=== PATIENT | male | born 1985 | race Caucasian/White ===

== ENCOUNTER 2020-08-01 20:58 | Emergency (ER) | payer OTHER, SELFPAY ==
[2020-08-01 20:59] VITALS: BP 126/84; PULSE 89; RESP 16; TEMP 37.7; O2SAT 100; BMI 27.8
--- NOTE | 2020-08-01 22:03 | ED.DCSUM_ITS ---
History of Present Illness Chief Complaint: Cellulitis Informant: Patient Narrative: Patient is a 34-year-old previously healthy male who presents to the emergency department for right hand swelling and warmth. He was diagnosed with cellulitis by his PCP earlier today. He has taken 1 dose of Keflex so far. They jl a line around the area of erythema and was told to come to the emerge department if it spread past this. This started to spread of the wrist slightly so he decided to come to the emergency department. He denies any fevers at home. He has been taking ibuprofen. He states that the pain was pretty significant yesterday but today it feels much better. There is still swelling. He denies any nausea/vomiting. Denies ever had his happen before in the past. On he had a wart to the palmar aspect of the hand which he picked off. This was thought to be the source of the infection. Denies any history of abscesses or MRSA before in the past. Past Medical History - Allergies and Home Meds Allergies/Adverse Reactions: Allergies No Known Allergies Allergy (Verified 08/01/20 21:01) Primary Care Physician: Shahbaz Parada DO [Primary Care Provider] - 2 Days Prior records reviewed: Yes Past Medical History: None Smoking Status: Current every day smoker Review of Systems All systems negative except as indicated General: Denies: Chills, Fever, Sweats Eyes: Denies: Visual changes - bilaterally, Diplopia ENT: Denies: Rhinorrhea, Sore throat Cardiovascular: Denies: Chest pain, Palpitations Respiratory: Denies: Dyspnea, Cough, Dyspnea on exertion Gastrointestinal: Denies: Abdominal pain, Nausea, Vomiting, Diarrhea Musculoskeletal: Reports: Swelling, Extremity Pain. Denies: Back pain Skin: Reports: Rash. Denies: Wounds Neurological: Denies: Headache, Weakness, Numbness Physical Exam Vital Signs/Narrative: Vital Signs Temp Pulse Resp BP Pulse Ox 08/01/20 20:59 99.8 F H 89 16 126/84 H 100 Inital Vital Signs reviewed: Yes General: Well nourished, Well developed, No Acute Distress Head: Normocephalic, Atraumatic Eyes: Perrl, EOMI ENT: Moist mucous membranes, No rhinorrhea Neck: Supple, Nontender Cardiovascular: Regular rate, Regular rhythm, No murmurs Respiratory: No distress, CTA bilaterally, Chest nontender Abdomen: Soft, Nondistended Back: Nontender, Normal Inspection Extremities: Nontender, No edema, Edema - Right hand swelling. Previous wart removal site at the right ring finger. The finger is swollen but has good range of motion. No pain with passive range of motion. No wrist pain. Neurovascular intact. Skin: Normal color, No rash Neurological: Alert, Oriented x3, Cranial nerves II-XII grossly intact, Normal Strength, Normal Sensation Psychological: Normal affect, Normal Mood Diagnostic/Tx/Re-eval - Medical Decision Making Patient presents emerge department for cellulitis of his hand. He is currently undergoing treatment although he only took 1 dose of antibiotics. I do not feel that he failed outpatient therapy as he did not get an appropriate dose to treat this yet. He does have a slightly elevated temperature but is currently afebrile. Will add Bactrim to cover for MRSA. He is given first dose here in the emergency department. Warning signs and symptoms which to return to the ED are reviewed. Otherwise he needs to follow-up with his PCP. Patient understands and is agreeable this plan. Will discharge home in stable condition. ED Disposition - Plan for ED Patient: Disposition: Home or Assisted Living Diagnosis: Cellulitis of hand Instructions: ED Cellulitis Prescriptions: Smz/Tmp Ds [Bactrim Ds] 2 tab PO BID 7 Days #28 tab Transmission Status: Received by [facility] Smz/Tmp Ds [Bactrim Ds] 2 tab PO BID 7 Days #28 tab Prescription Printed Referrals: Shahbaz Parada DO [Primary Care Provider] - 2 Days
[2020-08-01] MEDS: Smz/Tmp Ds Tablet 2 TABLET PO (22:30)
== END 2020-08-01 22:47 | disposition home or self-care (01) ==
LOC: ED 22:13
PROVIDERS: Emergency Provider Emergency Medicine; PCP Family Medicine
DX: L03.113 Cellulitis of right upper limb (principal); F17.200 Nicotine dependence, unspecified, uncomplicated
CPT/HCPCS: 99283

== ENCOUNTER → 2025-04-26 | Outpatient (CLI) | payer OTHER, SELFPAY ==
--- OUTSIDE RECORDS SUMMARY | 2025-04-26 07:27 | XMS RPT_ITS | CCD ---
Author Organization [employer] [facility] [employer] Results Test Name Value Interpretation Reference Range Facil ity Emergency Department Summary on 08-02-[address] [facility] Medical Records Department [address] [place] [address] Emergency Department Summary 08/01/20 MR#: [id number] Acct: [id number] Name: JOSE JORDAN Rep #: [id number] : 1985 34 From: Uvaldo Salazar DO PCP: Dr. Shahbaz Parada DO Status:DEP ER History of Present Illness Chief Complaint: Cellulitis Informant: Patient Narrative: Patient is a 34-year-old previously healthy male who presents to the emergency department for right hand swelling and warmth. He was diagnosed with cellulitis by his PCP earlier today. He has taken 1 dose of Keflex so far. They jl a line around the area of erythema and was told to come to the emerge department if it spread past this. This started to spread of the wrist slightly so he decided to come to the emergency department. He denies any fevers at home. He has been taking ibuprofen. He states that the pain was pretty significant yesterday but today it feels much better. There is still swelling. He denies any nausea/vomiting. Denies ever had his happen before in the past. On he had a wart to the palmar aspect of the hand which he picked off. This was thought to be the source of the infection. Denies any history of abscesses or MRSA before in the past. Past Medical History - Allergies and Home Meds Allergies/Adverse Reactions: Allergies No Known Allergies Allergy (Verified 08/01/20 21:01) Primary Care Physician: Shahbaz Parada DO [Primary Care Provider] - 2 Days Prior records reviewed: Yes Past Medical History: None Smoking Status: Current every day smoker Review of Systems All systems negative except as indicated General: Denies: Chills, Fever, Sweats Eyes: Denies: Visual changes - bilaterally, Diplopia ENT: Denies: Rhinorrhea, Sore throat Cardiovascular: Denies: Chest pain, Palpitations Respiratory: Denies: Dyspnea, Cough, Dyspnea on exertion Gastrointestinal: Denies: Abdominal pain, Nausea, Vomiting, Diarrhea Musculoskeletal: Reports: Swelling, Extremity Pain. Denies: Back pain Skin: Reports: Rash. Denies: Wounds Neurological: Denies: Headache, Weakness, Numbness Physical Exam Vital Signs/Narrative: Vital Signs Temp Pulse Resp BP Pulse Ox 08/01/20 20:59 99.8 F H 89 16 126/84 H 100 Inital Vital Signs reviewed: Yes General: Well nourished, Well developed, No Acute Distress Head: Normocephalic, Atraumatic Eyes: Perrl, EOMI ENT: Moist mucous membranes, No rhinorrhea Neck: Supple, Nontender Cardiovascular: Regular rate, Regular rhythm, No murmurs Respiratory: No distress, CTA bilaterally, Chest nontender Abdomen: Soft, Nondistended Back: Nontender, Normal Inspection Extremities: Nontender, No edema, Edema - Right hand swelling. Previous wart removal site at the right ring finger. The finger is swollen but has good range of motion. No pain with passive range of motion. No wrist pain. Neurovascular intact. Skin: Normal color, No rash Neurological: Alert, Oriented x3, Cranial nerves II-XII grossly intact, Normal Strength, Normal Sensation Psychological: Normal affect, Normal Mood Diagnostic/Tx/Re-eval - Medical Decision Making Patient presents emerge department for cellulitis of his hand. He is currently undergoing treatment although he only took 1 dose of antibiotics. I do not feel that he failed outpatient therapy as he did not get an appropriate dose to treat this yet. He does have a slightly elevated temperature but is currently afebrile. Will add Bactrim to cover for MRSA. He is given first dose here in the emergency department. Warning signs and symptoms which to return to the ED are reviewed. Otherwise he needs to follow-up with his PCP. Patient understands and is agreeable this plan. Will discharge home in stable condition. ED Disposition - Plan for ED Patient: Disposition: Home or Assisted Living Diagnosis: Cellulitis of hand Instructions: ED Cellulitis Prescriptions: Smz/Tmp Ds [Bactrim Ds] 2 tab PO BID 7 Days #28 tab Transmission Status: Received by [facility] Smz/Tmp Ds [Bactrim Ds] 2 tab PO BID 7 Days #28 tab Prescription Printed Referrals: Shahbaz Parada DO [Primary Care Provider] - 2 Days What to do if you have Problems For any increased pain, shortness of breath, bleeding, nausea or vomiting, chest pain, or any unexpected problems, contact your Primary Care Provider. Call [facility] ([phone]) or report to the closest Emergency Room. Call 911 if necessary. 08/01/20 5179 Date Uvaldo Arguello Signature (If Indicated): Date _ CC: Dr. Shahbaz Parada DO [facility] 08-02-2019 [facility] Office Visit (GENSWS ) JOSE JORDAN ([id number]) 1985 M Date Time Provider Department 08/02/19 8:20 AM KELSIE SPRAGUE During your visit today, we recorded the following information about you: Temperature Pulse Blood pressure Weight 98.4 degrees 95/minute 114/64 78 kg Kelsie Sprague MD 08/02/2019 3:54 PM Signed Jose is s/p excision of infected sebaceous cyst 07/21/19 of back. Denies drainage Denies fevers. Examination: wound is granulating in well, some fibrinous exudate noted, no further residual infection and surrounding skin without inflammation Impression: s/p excision of infected sebaceous cyst Plan: Dressing change done today. Wound to heal by secondary intention. No further wound packing needed. Apply gauze dressing into wound (over the wound). To be done daily, may be done in the shower, can irrigate with hydrogen peroxide. Scrub area gently with soft washcloth to remove fibrinous exudate buildup Follow up with me as per needed, I suspect wound should heal well at this point, given the above. Patient encouraged to return to clinic if worsening signs/symptoms. Patient to return to his primary physician for medical care Referring Provider: SELF [[id number]] Allergies As of Date: 08/02/2019 (No Known Allergies) Date Reviewed: 08/02/2019 Reviewed by: Bing Rentreia RN - Fully Assessed Reason for Visit: Post Op [174] Primary Visit Diagnosis:Follow-up exam [Z09] Prescriptions as of 08/02/2019 Sig: ACIDOPHILUS ORAL Take by mouth. DOXYCYCLINE MONOHYDRATE 100 M* Take 1 capsule by mouth twice* Patient not taking: Reported on 07/16/2019 Problem List As Of Date: 08/02/2019 (None) Encounter Status:Closed by MD KELSIE SPRAGUE on 08/02/19 [facility] PROGRESSon 08-02-2019 PROGRESS HNO ID: [id number] Author: Kelsie Sprague Service: ? Author Type: Physician Type: Progress Notes Filed: 08/02/2019 3:54 PM Note Text: Jose is s/p excision of infected sebaceous cyst 07/21/19 of back. Denies drainage Denies fevers. Examination: wound is granulating in well, some fibrinous exudate noted, no further residual infection and surrounding skin without inflammation Impression: s/p excision of infected sebaceous cyst Plan: Dressing change done today. Wound to heal by secondary intention. No further wound packing needed. Apply gauze dressing into wound (over the wound). To be done daily, may be done in the shower, can irrigate with hydrogen peroxide. Scrub area gently with soft washcloth to remove fibrinous exudate buildup Follow up with me as per needed, I suspect wound should heal well at this point, given the above. Patient encouraged to return to clinic if worsening signs/symptoms. Patient to return to his primary physician for medical care [facility] CNOVon 07-26-2019 CNOV Office Visit (GENSWS ) JOSE JORDAN ([id number]) 1985 M Date Time Provider Department 07/26/19 10:40 AM KELSIE SPRAGUE During your visit today, we recorded the following information about you: Temperature Pulse Weight 97.8 degrees 80/minute 78.5 kg Kelsie Sprague MD 07/27/2019 3:24 PM Signed Jose is s/p excision of infected sebaceous cyst 07/21/19 of back. Minimal seepage at the site. Denies fevers. Examination: wound is granulating in well, no further residual infection and surrounding skin without inflammation Impression: s/p excision of infected sebaceous cyst Plan: Dressing change done today. Wound to heal by secondary intention. No further wound packing needed. Apply gauze dressing into wound (over the wound). To be done daily, may be done in the shower, can irrigate with hydrogen peroxide. Follow up in one week. Referring Provider: SELF [[id number]] Allergies As of Date: 07/26/2019 (No Known Allergies) Date Reviewed: 07/26/2019 Reviewed by: Bing Renteria RN - Fully Assessed Reason for Visit: Post Op [174] Primary Visit Diagnosis:Infected sebaceous cyst [L72.3, L08.9] Prescriptions as of 07/26/2019 Sig: ACIDOPHILUS ORAL Take by mouth. DOXYCYCLINE MONOHYDRATE 100 M* Take 1 capsule by mouth twice* Patient not taking: Reported on 07/16/2019 Problem List As Of Date: 07/26/2019 (None) Encounter Status:Closed by MD KELSIE SPRAGUE on 07/27/19 [facility] PROGRESSon 07-26-2019 PROGRESS HNO ID: [id number] Author: Kelsie Sprague Service: ? Author Type: Physician Type: Progress Notes Filed: 07/27/2019 3:24 PM Note Text: Jose is s/p excision of infected sebaceous cyst 07/21/19 of back. Minimal seepage at the site. Denies fevers. Examination: wound is granulating in well, no further residual infection and surrounding skin without inflammation Impression: s/p excision of infected sebaceous cyst Plan: Dressing change done today. Wound to heal by secondary intention. No further wound packing needed. Apply gauze dressing into wound (over the wound). To be done daily, may be done in the shower, can irrigate with hydrogen peroxide. Follow up in one week. [facility] PROCEDUREon 07-24-2019 PROCEDURE HNO ID: [id number] Author: Kelsie Sprague Service: ? Author Type: Physician Type: Procedures Filed: 07/24/2019 3:21 PM Note Text: Description of procedure: After informed consent was obtained, patient was brought to the procedure room. Appropriate time out protocol was followed. Patient was placed in the prone position. The site of the lesion was then cleansed with a sterile surgical skin preparation. Appropriate sterile surgical drapes were placed. The skin and subcutaneous tissues at the site were then infiltrated with local anesthetic. A skin incision was made at the site in a cruciate fashion over the infected sebaceous cyst with a 15 blade scalpel. The incision was carried down to the subcutaneous tissues. Dissection was done to separate the skin lesion from the surrounding subcutaneous tissues. The lesion was excised sharply down to the subcutaneous tissues. The lesion was 3 cm in size. It was consistent with an infected sebaceous cyst. The patient did not want it sent to pathology for analysis. Hemostasis was controlled by pressure. The wound was densely packed with gauze. Sterile dressing was applied. Patient tolerated procedure well. [facility] PROGRESSon 07-24-2019 PROGRESS HNO ID: [id number] Author: Kelsie Sprague Service: ? Author Type: Physician Type: Progress Notes Filed: 07/24/2019 5:55 PM Note Text: Jose is s/p excision of infected sebaceous cyst 07/21/19 Minimal seepage at the site. Denies fevers. Examination: wound is granulating in well, no further residual infection and surrounding skin without inflammation Impression: s/p excision of infected sebaceous cyst Plan: Dressing change - follow up Friday Wound to heal by secondary intention. [facility] CNOVon 07-23-2019 CNOV Office Visit (GENSWS ) JOSE JORDAN ([id number]) 1985 M Date Time Provider Department 07/23/19 3:30 PM KELSIE SPRAGUE During your visit today, we recorded the following information about you: Kelsie Sprague MD 07/24/2019 5:55 PM Signed Jose is s/p excision of infected sebaceous cyst 07/21/19 Minimal seepage at the site. Denies fevers. Examination: wound is granulating in well, no further residual infection and surrounding skin without inflammation Impression: s/p excision of infected sebaceous cyst Plan: Dressing change - follow up Friday Wound to heal by secondary intention. Referring Provider: SELF [[id number]] Allergies As of Date: 07/23/2019 (No Known Allergies) Date Reviewed: 07/23/2019 Reviewed by: Dunia Argueta LPN - Fully Assessed Reason for Visit: Post Op [174] Primary Visit Diagnosis:Follow-up exam [Z09] Prescriptions as of 07/23/2019 Sig: ACIDOPHILUS ORAL Take by mouth. CEPHALEXIN 500 MG CAPSULE Take 1 capsule by mouth three* DOXYCYCLINE MONOHYDRATE 100 M* Take 1 capsule by mouth twice* Patient not taking: Reported on 07/16/2019 Problem List As Of Date: 07/23/2019 (None) Encounter Status:Closed by MD KELSIE SPRAGUE on 07/24/19 [facility] CNOVon 07-21-2019 CNOV Office Visit (GENSWS ) JOSE JORDAN ([id number]) 1985 M Date Time Provider Department 07/21/19 3:20 PM KELSIE SPRAGUE During your visit today, we recorded the following information about you: Dunia Kendall CUTLER 07/21/2019 4:36 PM Signed INFORMED CONSENT Jose Vernonessence Medical Record: [id number] Procedure:excision and drainage back sebaceous cyst The risks, benefits and anticipated outcomes of the procedure, the risks and benefits of the alternatives to the procedure and the roles and tasks of the personnel to be involved were discussed with the patient and the patient consents to the procedure and agrees to proceed. I verify that I personally obtained Jose Vernonessence's consent. Dunia Argueta LPN July 21, 2019 4:36 PM Dept of GENERAL SURGERY UNIVERSAL PROTOCOL / SAFETY CHECKLIST Procedure to be performed: excison and drainage back sebaceous cyst Sign in Communication: Completed Time Out: Team Confirms the Correct Patient, Correct Procedure, Correct Site and Site Marking, Correct Position (if applicable), Prep and Dry Time (if applicable). Time: 436 pm Affirmation of Time Out: YES Sign Out Discussion: Completed Dunia Argueta LPN Dunia Kendall CUTLER 07/21/2019 4:43 PM Signed The following instructions are important for you related to your office visit today with the [facility]. Instructions After I AND D You are instructed to return in 2 days for a follow up. If the dressing becomes soaked or had significant drainage, the dressing should be changed. If there is minor bleeding from this skin edge, you should hold pressure on the incision. If there is continued bleeding, you should contact our office immediately. Wash the wound with gentle soap and water. You may shower. The wound should not be immersed in a pool, bathtub, or even hot tub. If the wound shows signs of redness, inflammation, or purulent drainage, you should contact our office immediately. If you note any additional difficulties, questions, or concerns, you should contact our office immediately @ [phone] and ask to be transferred to the General Surgery department. Kelsie Sprague MD 07/24/2019 3:21 PM Signed Jose Jordan 1985 REFERRING PHYSICIAN: Mariaelena Nolen, APR* CHIEF COMPLAINT: Consult (Consult sebaceous cyst on back) HPI: The patient is a 33 year old male presents with infected skin lesion of back. Noted lesion for about a year. Was much smaller - demonstrates with his fingers - 1-2 cm. Then in the past week, he noted the lesion has increased in size and become painful. Denies drainage. PAST MEDICAL HISTORY: denies PAST SURGICAL HISTORY Procedure Laterality Date - PAST SURGICAL HISTORY OF 2001 Excision of sebaceous cyst on back Current Outpatient Medications: Lactobacillus acidophilus (ACIDOPHILUS ORAL) Take by mouth. cephALEXin (KEFLEX) 500 mg capsule Take 1 capsule by mouth three times daily for 7 days. doxycycline monohydrate (MONODOX) 100 mg capsule Take 1 capsule by mouth twice daily. (Patient not taking: Reported on 07/16/2019 ) ALLERGIES: Patient has no known allergies. PERSONAL HISTORY: Social History Socioeconomic History Marital status: Unknown Spouse name: Not on file Number of children: Not on file Years of education: Not on file Highest education level: Not on file Occupational History Not on file Social Needs Financial resource strain: Not on file Food insecurity: Worry: Not on file Inability: Not on file Transportation needs: Medical: Not on file Non-medical: Not on file Tobacco Use Smoking status: Current Every Day Smoker Packs/day: 0.50 Start date: 07/21/2004 Smokeless tobacco: Never Used Substance and Sexual Activity Alcohol use: No Drug use: Not on file Sexual activity: Not on file Lifestyle Physical activity: Days per week: Not on file Minutes per session: Not on file Stress: Not on file Relationships Social connections: Talks on phone: Not on file Gets together: Not on file Attends baptist service: Not on file Active member of club or organization: Not on file Attends meetings of clubs or organizations: Not on file Relationship status: Not on file Intimate partner violence: Fear of current or ex partner: Not on file Emotionally abused: Not on file Physically abused: Not on file Forced sexual activity: Not on file Other Topics Concerns: Not on file Social History Narrative Not on file FAMILY HISTORY: No family history on file. REVIEW OF SYSTEMS: General - denies fevers, denies anorexia, denies weight loss Cardiovascular - denies chest pain, denies history of DE Pulmonary - denies shortness of breath, denies coughing up blood Gastrointestinal - denies abdominal pain, denies hematemesis, denies blood in stools Neurological - denies seizures, denies chronic numbness/weakness of extremities, denies chronic headaches Genitourinary - denies burning with urination, denies blood in urine Hematological - denies spontaneous/prolonged bleeding Skin - see above Musculoskeletal - denies chronic joint/back pain Endocrine - denies diabetes, no thyroid problems Psychological ? denies hallucinations PHYSICAL EXAMINATION: General: The patient is 33 year old male, well nourished, well hydrated in no acute distress. The patient is oriented to time, place, and person. VITALS: Temp 98.3F Hr 88 RR 16 BP 117/67 Head ? Normocephalic. EOM intact with sclera clear and no icterus noted. Mouth with mucus membranes moist. Neck - supple with no jugular venous distention noted. Trachea is midline. Lungs ? clear to auscultation. Normal breath sounds. No rales/rhonchi/wheezin g noted. No labored breathing noted, such as retractions. No cough heard. Heart ? normal S1 and S2 auscultated. No rubs/clicks/murmurs noted. Regular rate. Abdomen ? soft and benign. Back - mid back with rounded swelling 3-4 cm with central puckering but no drainage, erythematous/indurate d/tender Extremities ? no calf tenderness noted. No pitting edema noted. Skin ? see above, otherwise normal skin integrity. Neurological ? gait normal, no focal deficits noted Psych ? calm and appropriate Assessment IMPRESSION: infected sebaceous cyst of back PLAN: I have discussed the above with the patient. And his who is present with him. I have offered excision of this infected sebacoues cyst I have explained that since this is infected, the wound cannot be closed and must be allowed to heal by secondary intention I have explained the procedure to the patient, to be done using local anesthesia in the office. I have counseled the patient as to the risks of the procedure, including but not limited to: infection, bleeding, injury to any blood vessels/nerves, scar tissue, continued wound infection, complications of anesthesia, etc. ? the patient understands. The patient wishes to proceed. Tolerated procedure well. Follow up on Friday for wound check. I have answered all questions to the patient?s satisfaction and the patient has no further questions. . Diagnoses: (L72.3, L08.9) Infected sebaceous cyst (primary encounter diagnosis) Return to Clinic: The patient is instructed to follow-up with me as per needed. MD Kelsie Holland MD 07/24/2019 3:21 PM Signed Description of procedure: After informed consent was obtained, patient was brought to the procedure room. Appropriate time out protocol was followed. Patient was placed in the prone position. The site of the lesion was then cleansed with a sterile surgical skin preparation. Appropriate sterile surgical drapes were placed. The skin and subcutaneous tissues at the site were then infiltrated with local anesthetic. A skin incision was made at the site in a cruciate fashion over the infected sebaceous cyst with a 15 blade scalpel. The incision was carried down to the subcutaneous tissues. Dissection was done to separate the skin lesion from the surrounding subcutaneous tissues. The lesion was excised sharply down to the subcutaneous tissues. The lesion was 3 cm in size. It was consistent with an infected sebaceous cyst. The patient did not want it sent to pathology for analysis. Hemostasis was controlled by pressure. The wound was densely packed with gauze. Sterile dressing was applied. Patient tolerated procedure well. Referring Provider: MARIAELENA NOLEN [[id number]] Allergies As of Date: 07/21/2019 (No Known Allergies) Date Reviewed: 07/21/2019 Reviewed by: Uvaldo Tam LPN - Fully Assessed Reason for Visit: Consult [173] Cmt: Consult sebaceous cyst on back Primary Visit Diagnosis:Infected sebaceous cyst [L72.3, L08.9] Prescriptions as of 07/21/2019 Sig: ACIDOPHILUS ORAL Take by mouth. CEPHALEXIN 500 MG CAPSULE Take 1 capsule by mouth three* DOXYCYCLINE MONOHYDRATE 100 M* Take 1 capsule by mouth twice* Patient not taking: Reported on 07/16/2019 Problem List As Of Date: 07/21/2019 (None) Other instructions from your clinician: The following instructions are important for you related to your office visit today with the [facility]. Instructions After I AND D You are instructed to return in 2 days for a follow up. If the dressing becomes soaked or had significant drainage, the dressing should be changed. If there is minor bleeding from this skin edge, you should hold pressure on the incision. If there is continued bleeding, you should contact our office immediately. Wash the wound with gentle soap and water. You may shower. The wound should not be immersed in a pool, bathtub, or even hot tub. If the wound shows signs of redness, inflammation, or purulent drainage, you should contact our office immediately. If you note any additional difficulties, questions, or concerns, you should contact our office immediately @ [phone] and ask to be transferred to the General Surgery department. Visit Notes: >> Dunia Argueta LPN Wed Jul 21, 2019 4:36 PM Status: Signed INFORMED CONSENT Jose Vernonessence Medical Record: [id number] Procedure:excision and drainage back sebaceous cyst The risks, benefits and anticipated outcomes of the procedure, the risks and benefits of the alternatives to the procedure and the roles and tasks of the personnel to be involved were discussed with the patient and the patient consents to the procedure and agrees to proceed. I verify that I personally obtained Jose Jordan's consent. Dunia Argueta LPN July 21, 2019 4:36 PM Dept of GENERAL SURGERY UNIVERSAL PROTOCOL / SAFETY CHECKLIST Procedure to be performed: excison and drainage back sebaceous cyst Sign in Communication: Completed Time Out: Team Confirms the Correct Patient, Correct Procedure, Correct Site and Site Marking, Correct Position (if applicable), Prep and Dry Time (if applicable). Time: 436 pm Affirmation of Time Out: YES Sign Out Discussion: Completed Dunia Argueta LPN Letter Text Encounter Status:Closed by MD KELSIE SPRAGUE on 07/24/19 [facility] PROGRESSon 07-21-2019 PROGRESS HNO ID: [id number] Author: Kelsie Sprague Service: ? Author Type: Physician Type: Progress Notes Filed: 07/24/2019 3:21 PM Note Text: Jose Jordan 1985 REFERRING PHYSICIAN: Mariaelena Nolen, APR* CHIEF COMPLAINT: Consult (Consult sebaceous cyst on back) HPI: The patient is a 33 year old male presents with infected skin lesion of back. Noted lesion for about a year. Was much smaller - demonstrates with his fingers - 1-2 cm. Then in the past week, he noted the lesion has increased in size and become painful. Denies drainage. PAST MEDICAL HISTORY: denies PAST SURGICAL HISTORY Procedure Laterality Date - PAST SURGICAL HISTORY OF 2001 Excision of sebaceous cyst on back Current Outpatient Medications: Lactobacillus acidophilus (ACIDOPHILUS ORAL) Take by mouth. cephALEXin (KEFLEX) 500 mg capsule Take 1 capsule by mouth three times daily for 7 days. doxycycline monohydrate (MONODOX) 100 mg capsule Take 1 capsule by mouth twice daily. (Patient not taking: Reported on 07/16/2019 ) ALLERGIES: Patient has no known allergies. PERSONAL HISTORY: Social History Socioeconomic History Marital status: Unknown Spouse name: Not on file Number of children: Not on file Years of education: Not on file Highest education level: Not on file Occupational History Not on file Social Needs Financial resource strain: Not on file Food insecurity: Worry: Not on file Inability: Not on file Transportation needs: Medical: Not on file Non-medical: Not on file Tobacco Use Smoking status: Current Every Day Smoker Packs/day: 0.50 Start date: 07/21/2004 Smokeless tobacco: Never Used Substance and Sexual Activity Alcohol use: No Drug use: Not on file Sexual activity: Not on file Lifestyle Physical activity: Days per week: Not on file Minutes per session: Not on file Stress: Not on file Relationships Social connections: Talks on phone: Not on file Gets together: Not on file Attends [employer] service: Not on file Active member of club or organization: Not on file Attends meetings of clubs or organizations: Not on file Relationship status: Not on file Intimate partner violence: Fear of current or ex partner: Not on file Emotionally abused: Not on file Physically abused: Not on file Forced sexual activity: Not on file Other Topics Concerns: Not on file Social History Narrative Not on file FAMILY HISTORY: No family history on file. REVIEW OF SYSTEMS: General - denies fevers, denies anorexia, denies weight loss Cardiovascular - denies chest pain, denies history of DE Pulmonary - denies shortness of breath, denies coughing up blood Gastrointestinal - denies abdominal pain, denies hematemesis, denies blood in stools Neurological - denies seizures, denies chronic numbness/weakness of extremities, denies chronic headaches Genitourinary - denies burning with urination, denies blood in urine Hematological - denies spontaneous/prolonged bleeding Skin - see above Musculoskeletal - denies chronic joint/back pain Endocrine - denies diabetes, no thyroid problems Psychological ? denies hallucinations PHYSICAL EXAMINATION: General: The patient is 33 year old male, well nourished, well hydrated in no acute distress. The patient is oriented to time, place, and person. VITALS: Temp 98.3F Hr 88 RR 16 BP 117/67 Head ? Normocephalic. EOM intact with sclera clear and no icterus noted. Mouth with mucus membranes moist. Neck - supple with no jugular venous distention noted. Trachea is midline. Lungs ? clear to auscultation. Normal breath sounds. No rales/rhonchi/wheezin g noted. No labored breathing noted, such as retractions. No cough heard. Heart ? normal S1 and S2 auscultated. No rubs/clicks/murmurs noted. Regular rate. Abdomen ? soft and benign. Back - mid back with rounded swelling 3-4 cm with central puckering but no drainage, erythematous/indurate d/tender Extremities ? no calf tenderness noted. No pitting edema noted. Skin ? see above, otherwise normal skin integrity. Neurological ? gait normal, no focal deficits noted Psych ? calm and appropriate Assessment IMPRESSION: infected sebaceous cyst of back PLAN: I have discussed the above with the patient. And his who is present with him. I have offered excision of this infected sebacoues cyst I have explained that since this is infected, the wound cannot be closed and must be allowed to heal by secondary intention I have explained the procedure to the patient, to be done using local anesthesia in the office. I have counseled the patient as to the risks of the procedure, including but not limited to: infection, bleeding, injury to any blood vessels/nerves, scar tissue, continued wound infection, complications of anesthesia, etc. ? the patient understands. The patient wishes to proceed. Tolerated procedure well. Follow up on Friday for wound check. I have answered all questions to the patient?s satisfaction and the patient has no further questions. . Diagnoses: (L72.3, L08.9) Infected sebaceous cyst (primary encounter diagnosis) Return to Clinic: The patient is instructed to follow-up with me as per needed. Kelsie Sprague MD [facility] CNOVon 07-16-2019 CNOV Office Visit ([facility] ) JOSE JORDAN ([id number]) 1985 M Date Time Provider Department 07/16/19 12:30 PM MARIAELENA NOLEN [facility] During your visit today, we recorded the following information about you: Temperature Pulse Respiration Blood pressure 98.3 degrees 101/minute 16/minute 120/84 Weight 77.6 kg Mariaelena Nolen, STUDENT AFFAIRS VICE PRESIDENT.[employer] 07/16/2019 1:29 PM Signed Subjective HPI Jose Jordan is a 33 year old male who presents with his for a cyst of his back. He has a history of a sebaceous cyst which was removed by a surgeon many years ago when he was a teen. He has developed a similar cyst just adjacent to the previous one. His suspenders rub in this area and this is how he first noticed it. He had his look at it and she noticed a lot of redness. She did attempt to brent the area with a pin, but was unsuccessful. He states that he feels well otherwise. Review of Systems Constitutional: Negative for chills, fever and malaise/fatigue. Skin: Cyst of upper back Neurological: Negative for tingling and sensory change. BP 120/84 Pulse 101 Temp 36.8 ?C (98.3 ?F) (Left Tympanic) Resp 16 Wt 77.6 kg (171 lb) SpO2 99% History reviewed. No pertinent past medical history. PAST SURGICAL HISTORY Procedure Laterality Date - NONE ALLERGIES Patient has no known allergies. MEDICATIONS doxycycline monohydrate (MONODOX) 100 mg capsule Take 1 capsule by mouth twice daily. History reviewed. No pertinent family history. Social History Tobacco Use - Smoking status: Current Every Day Smoker - Smokeless tobacco: Never Used Substance Use Topics - Alcohol use: No - Drug use: Not on file Objective Physical Exam Constitutional: He is oriented to person, place, and time and well-developed, well-nourished, and in no distress. HENT: Head: Normocephalic and atraumatic. Eyes: Conjunctivae are normal. Cardiovascular: Normal rate, regular rhythm, normal heart sounds and intact distal pulses. Exam reveals no gallop and no friction rub. No murmur heard. Pulmonary/Chest: Effort normal and breath sounds normal. No respiratory distress. He has no wheezes. He has no rales. He exhibits no tenderness. Musculoskeletal: He exhibits no edema. Lymphadenopathy: He has no cervical adenopathy. Neurological: He is alert and oriented to person, place, and time. Gait normal. Skin: Skin is warm and dry. He is not diaphoretic. Sebaceous cyst of left upper-mid back. Scar from previously removed cyst noted just to the right of the current one. Erythema and tenderness noted. Firm and nodular. No fluctuance or pus visible. Psychiatric: Mood, memory, affect and judgment normal. ASSESSMENT/PLAN: 1. Cyst of skin - ICD9: 706.2, ICD10: L72.9 - start keflex TID for 7 days - warm compresses TID for comfort - red flags dicussed - CONSULT TO GENERAL SURGERY All of the above discussed with the patient in detail. Patient is in agreement with the above plan. Treatment and plan of care discussed including course of treatment, possible medication side effects, and what to watch for in regards to worsening signs and symptoms. All questions addressed. Mariaelena Nolen, VENKATESH.[employer] Referring Provider: SELF [[id number]] Allergies As of Date: 07/16/2019 (No Known Allergies) Date Reviewed: 07/16/2019 Reviewed by: Mariaelena Nolen - Fully Assessed Reason for Visit: Cyst [260] Cmt: upper LEFT side of back Primary Visit Diagnosis:Cyst of skin [L72.9] Order(s):cephALEXin (KEFLEX) 500 mg capsuleTake 1 capsule by mouth three times daily for 7 days.Disp: 21 capsuleRfl: 0 CONSULT TO GENERAL SURGERY [9011] Order #: [id number]: 1 Prescriptions as of 07/16/2019 Sig: CEPHALEXIN 500 MG CAPSULE Take 1 capsule by mouth three* DOXYCYCLINE MONOHYDRATE 100 M* Take 1 capsule by mouth twice* Patient not taking: Reported on 07/16/2019 Problem List As Of Date: 07/16/2019 (None) Prescriptions ordered this encounter Disp Refills Start End CEPHALEXIN 500 MG CAPSULE 21 c* 0 07/16/2019 07/23/2019 Route: ORAL Sig: Take 1 capsule by mouth three times daily for 7 days. Encounter Status:Closed by TAMANNA RIDDLE.KHRIS MARIAELENA on 07/16/19 [facility] PROGRESSon 07-16-2019 PROGRESS HNO ID: [id number] Author: Mariaelena Nolen Service: ? Author Type: Nurse Practitioner Type: Progress Notes Filed: 07/16/2019 1:29 PM Note Text: Subjective HPI Jose Jordan is a 33 year old male who presents with his for a cyst of his back. He has a history of a sebaceous cyst which was removed by a surgeon many years ago when he was a teen. He has developed a similar cyst just adjacent to the previous one. His suspenders rub in this area and this is how he first noticed it. He had his look at it and she noticed a lot of redness. She did attempt to brent the area with a pin, but was unsuccessful. He states that he feels well otherwise. Review of Systems Constitutional: Negative for chills, fever and malaise/fatigue. Skin: Cyst of upper back Neurological: Negative for tingling and sensory change. BP 120/84 Pulse 101 Temp 36.8 ?C (98.3 ?F) (Left Tympanic) Resp 16 Wt 77.6 kg (171 lb) SpO2 99% History reviewed. No pertinent past medical history. PAST SURGICAL HISTORY Procedure Laterality Date - NONE ALLERGIES Patient has no known allergies. MEDICATIONS doxycycline monohydrate (MONODOX) 100 mg capsule Take 1 capsule by mouth twice daily. History reviewed. No pertinent family history. Social History Tobacco Use - Smoking status: Current Every Day Smoker - Smokeless tobacco: Never Used Substance Use Topics - Alcohol use: No - Drug use: Not on file Objective Physical Exam Constitutional: He is oriented to person, place, and time and well-developed, well-nourished, and in no distress. HENT: Head: Normocephalic and atraumatic. Eyes: Conjunctivae are normal. Cardiovascular: Normal rate, regular rhythm, normal heart sounds and intact distal pulses. Exam reveals no gallop and no friction rub. No murmur heard. Pulmonary/Chest: Effort normal and breath sounds normal. No respiratory distress. He has no wheezes. He has no rales. He exhibits no tenderness. Musculoskeletal: He exhibits no edema. Lymphadenopathy: He has no cervical adenopathy. Neurological: He is alert and oriented to person, place, and time. Gait normal. Skin: Skin is warm and dry. He is not diaphoretic. Sebaceous cyst of left upper-mid back. Scar from previously removed cyst noted just to the right of the current one. Erythema and tenderness noted. Firm and nodular. No fluctuance or pus visible. Psychiatric: Mood, memory, affect and judgment normal. ASSESSMENT/PLAN: 1. Cyst of skin - ICD9: 706.2, ICD10: L72.9 - start keflex TID for 7 days - warm compresses TID for comfort - red flags dicussed - CONSULT TO GENERAL SURGERY All of the above discussed with the patient in detail. Patient is in agreement with the above plan. Treatment and plan of care discussed including course of treatment, possible medication side effects, and what to watch for in regards to worsening signs and symptoms. All questions addressed. Mariaelena Nolen, VENKATESH.[employer] [facility] Summary Purpose Family History No Family History Records FoundNo Family History Records Found Advance Directives No Advanced Directives Records FoundNo Advanced Directives Records Found Additional Source Comments (unrecognized sect ion and content) No Status Records FoundNo Status Records Found INFORMATION SOURCE (unrecogn ized section and content) DATE CREATED AUTHOR 08/08/2019 [facility] DATE CREATED AUTHOR AUTHOR'S CARLOS CABRAL 08/05/2020 [facility] FOR RECORDS PERTAINING TO PATIENTS WHO ARE OR HAVE BEEN ENROLLED IN A CHEMICAL DEPENDENCY/SUBSTANCEABUSE PROGRAM, SOME INFORMATION MAY BE OMITTED. This clinical summary was aggregated from multiple sources. Caution should be exercised in using it in the provision of clinical care. This summary normalizes information from multiple sources, and as a consequence, information in this document may materially change the coding, format and clinical context of patient data. In addition, data may be omitted in some cases. CLINICAL DECISIONS SHOULD BE BASED ON THE PRIMARY CLINICAL RECORDS. [employer] provides no warranty or guarantee of the accuracy or completeness of information in this document.
[2025-04-26 07:29] LABS: Bacteria 0 SEEN /hpf (None Seen); White Blood Cells 0 SEEN /hpf (0-5)
[2025-04-26 09:13] LABS: Absolute Neutrophil Count 4.2 X10^3/uL (2.0-7.7); Basophil# 0.05 X10^3/uL; Basophil% 0.6 % (0-1); Eosinophil# 0.38 X10^3/uL; Eosinophils% 4.7 % (0-5); Hematocrit 41.5 % (40-54); Lymphocyte % 33.4 % (19-41); Mean Corp Hgb Conc 33.7 g/dL (32-36); Mean Corpuscular Hgb 28.9 pg (27.0-32.0); Mean Corpuscular Volume 85.7 fL (80-94); Mean Platelet Vol. 10.1 fl (6.2-12.0); Monocyte# 0.75 X10^3/uL; Monocyte% 9.3 % (0-10); NRBC Flagged by Analyzer 0 % (0-5); Neutrophil # 4.18 X10^3/uL (2.7-7.7); Neutrophil % 51.6 % (47-70); Platelet Count 310 K/mm3 (150-450); RBC Distribution Width CV 13.7 % (11.6-14.6); RBC Distribution Width SD 42.6 fl (35.1-43.9); Red Blood Count 4.84 M/mm3 (4.6-6.2); White Blood Count 8.1 K/mm3 (4.4-11.0)
[2025-04-26 09:28] LABS: Color, Urine Yellow (Yellow); Glucose, Dipstick Normal (Normal); Ketone-Dipstick Negative (Negative); Leukocyte Esterase-Dipstick Negative /ul (Negative); Nitrite-Dipstick Negative (Negative); Occult Blood-Urine Negative /ul (Negative); Protein-Dipstick 15 mg/dl (Negative); Specific Gravity, Urine 1.025 (1.002-1.030); Urine Bilirubin Dipstick Negative (Negative); Urine Clarity Clear (Clear); Urine Urobilinogen Normal (Normal)
[2025-04-26 09:45] LABS: ALB/GLOB Ratio 1.8 RATIO (0.9-2.4); AST(SGOT) 19 U/L (<=37); Alanine Aminotransfer ALT/SGPT 11 U/L (<=46); Albumin, Serum 4.5 g/dL (3.5-5.0); Alkaline Phosphatase 66 U/L (40-129); Anion Gap 13 (5-15); BUN 14 mg/dL (4-19); Calcium,Total 9.3 mg/dL (7.6-11.0); Carbon Dioxide 23.1 mmol/L (21.0-32.0); Chloride 105 mmol/L (98-108); Creatinine, Serum 0.99 mg/dL (0.70-1.20); EST Glomerular Filtration Rate 98 (>60); Globulin 2.5 g/dL (2.2-4.2); Glucose 95 mg/dL (70-99); Potassium 4.1 mmol/L (3.3-5.1); Protein, Total 6.9 g/dL (5.9-8.4); Sodium Level 140 mmol/L (133-145); Total Bilirubin 0.33 mg/dL (0.00-1.30)
[2025-04-26 09:56] LABS: Red Blood Cells-Urine 0-5 SEEN /hpf (0-5)
[2025-04-26 09:57] LABS: Mucous, Urine 1+ /hpf (<or=2+); Squamous Epithelial Cells - UA 0-5 SEEN /hpf (0-5)
[2025-04-27 13:08] LABS: ANTINUCLEAR ANTIBODIES DIRECT Negative (Negative); Anti-dsDNA Ab <1 IU/mL (0-9)
== END | disposition home or self-care (01) ==
LOC: LAB 07:24
PROVIDERS: PCP Family Medicine; Referring Provider Physician Assistant; Visit Provider Physician Assistant
DX: L30.8 Other specified dermatitis (principal)
CPT/HCPCS: 36415; 80053; 81001; 85025; 86038; 86225; 87086

== ENCOUNTER → 2025-10-21 | Outpatient (CLI) | payer OTHER, SELFPAY ==
[2025-10-21 09:05] LABS: Mucous, Urine 0 SEEN /hpf (<or=2+); Red Blood Cells-Urine 0 SEEN /hpf (0-5); Squamous Epithelial Cells - UA 0 SEEN /hpf (0-5)
[2025-10-21 09:59] LABS: Color, Urine Yellow (Yellow); Glucose, Dipstick Normal (Normal); Ketone-Dipstick Negative (Negative); Leukocyte Esterase-Dipstick 25 /ul (Negative); Nitrite-Dipstick Negative (Negative); Occult Blood-Urine Negative /ul (Negative); Protein-Dipstick 15 mg/dl (Negative); Specific Gravity, Urine 1.020 (1.002-1.030); Urine Bilirubin Dipstick Negative (Negative)
[2025-10-21 10:03] LABS: Hematocrit 44.1 % (40-54); Hemoglobin 14.7 g/dL (13.0-16.5); Immature Granulocytes Count 0.020 X10^3/uL (0.0-0.0); Mean Corp Hgb Conc 33.3 g/dL (32-36); Mean Corpuscular Volume 85.5 fL (80-94); Mean Platelet Vol. 9.7 fl (6.2-12.0); NRBC Flagged by Analyzer 0 % (0-5); Platelet Count 367 K/mm3 (150-450); RBC Distribution Width CV 13.2 % (11.6-14.6); RBC Distribution Width SD 41.3 fl (35.1-43.9); Red Blood Count 5.16 M/mm3 (4.6-6.2); White Blood Count 6.7 K/mm3 (4.4-11.0)
[2025-10-21 11:05] LABS: AST(SGOT) 28 U/L (<=37); Alanine Aminotransfer ALT/SGPT 16 U/L (<=46); Albumin, Serum 4.7 g/dL (3.5-5.0); Alkaline Phosphatase 66 U/L (40-129); Anion Gap 11 (5-15); BUN 15 mg/dL (4-19); BUN/Creat Ratio 15.3 RATIO (10-20); Calcium,Total 9.8 mg/dL (7.6-11.0); Carbon Dioxide 26.8 mmol/L (21.0-32.0); Chloride 102 mmol/L (98-108); Globulin 2.5 g/dL (2.2-4.2); Glucose 95 mg/dL (70-99); Potassium 4.4 mmol/L (3.3-5.1)
== END | disposition home or self-care (01) ==
PROVIDERS: Referring Provider Physician Assistant; Visit Provider Physician Assistant
DX: L93.0 Discoid lupus erythematosus (principal)
CPT/HCPCS: 36415; 80053; 81001; 85025; 86038